=== PATIENT | female | born 1990 | race Caucasian/White ===

== ENCOUNTER 2020-08-24 05:30 | Inpatient (IN) | payer OTHER ==
[~2020-08-24] VITALS: Ht 157.5 cm; Wt 72.6 kg
== END 2020-08-26 11:41 | disposition home or self-care (01) | DRG 807 ==
LOC: OB/GYN 05:30 → LDR 05:30 → OB/GYN 18:40
PROVIDERS: ADMIT Obstetrics & Gynecology; ATTEND Obstetrics & Gynecology
PROC: 10E0XZZ Delivery of Products of Conception, External Approach (ICD-10-PCS; principal; 2020-08-24)
PROC: 4A1HXFZ Monitoring of Products of Conception, Cardiac Rhythm, External Approach (ICD-10-PCS; 2020-08-24)
DX: O80 Encounter for full-term uncomplicated delivery (principal); Z37.0 Single live birth; Z3A.39 39 weeks gestation of pregnancy; Z20.822 Contact with and (suspected) exposure to COVID-19

== ENCOUNTER 2023-09-04 08:17 | Inpatient (IN) | payer OTHER ==
[~2023-09-04] VITALS: Ht 162.6 cm; Wt 87.1 kg
[2023-09-04 09:53] LABS: URINE APPEARANCE Clear; URINE BILIRRUBIN Negative (NEGATIVE); URINE BLOOD Negative; URINE COLOR Dark Yellow; URINE GLUCOSE Negative (NEGATIVE); URINE LEUKOCYTE Negative; URINE NITRATE Negative; URINE PROTEIN Negative (NEGATIVE); URINE UROBILINOGEN 0.2 E.U./dl
[2023-09-04 09:54] LABS: HEMOGLOBIN 12.9 g/dL (12.0-15.00); MEAN CELL VOLUME 84.6 fL (80.00-100.00); MEAN CORPUSCULAR HEMOGLOBIN 28.6 pg (27.00-32.0); MEAN CORPUSCULAR HGB CONC 33.8 g/dl (32.0-36.0); PLATELET COUNT 250 K/uL (150-450); RED CELL DISTRIBUTION WIDTH 14.9 % (11.5-14.5); URINE BACTERIA 823.9 uL (0.0-1933); URINE RBC 3.8 uL (0.0-20.8); URINE WBC 8.7 uL (0.0-23.2)
[2023-09-04] MEDS ORDERED: PRENATABS RX T1 EACH PO (10:06)
[2023-09-04] MEDS ORDERED: RINGERS SOLUTION,LACTATED 1,000 ML IV SCH (10:30)
[2023-09-04] MEDS ORDERED: OXYTOCIN 20 UNITS/500ML RL PIGGYBAG IV SCH (12:30)
[2023-09-04] MEDS ORDERED: ERYTHROMYCIN BASE 1 GM TUBE OP ONE (15:18)
[2023-09-04] MEDS ORDERED: CHLORHEXIDINE GLUCONATE 120 ML BOTTLE TOP ONE (15:18)
[2023-09-04] MEDS ORDERED: LIDOCAINE HCL 1% 200MG/20ML VIAL IJ ONE (15:18)
[2023-09-04] MEDS ORDERED: CHLORHEXIDINE GLUCONATE 120 ML BOTTLE TOP SCH (15:45)
[2023-09-04] MEDS ORDERED: ERYTHROMYCIN BASE 1 GM TUBE OP SCH (15:45)
[2023-09-04] MEDS ORDERED: OXYTOCIN 1,000 ML IV SCH (15:45)
[2023-09-04] MEDS ORDERED: ACETAMINOPHEN 500 MG GEL..CAP PO PRN (15:45)
[2023-09-04] MEDS ORDERED: LIDOCAINE HCL 1% 200MG/20ML VIAL IJ SCH (15:45)
[2023-09-04 19:44] LABS: HEMOGLOBIN 13.8 g/dL (12.0-15.00); MEAN CORPUSCULAR HEMOGLOBIN 28.6 pg (27.00-32.0); MEAN CORPUSCULAR HGB CONC 33.6 g/dl (32.0-36.0); PLATELET COUNT 242 K/uL (150-450); RED BLOOD COUNT 4.82 M/uL (4.00-6.00); RED CELL DISTRIBUTION WIDTH 14.7 % (11.5-14.5)
[2023-09-05] MEDS ORDERED: PNV,CALCIUM 72/IRON/FOLIC ACID 1 TAB TABLET PO SCH (09:00)
== END 2023-09-06 16:28 | disposition home or self-care (01) | DRG 807 ==
LOC: LDR 08:17 → OB/GYN 16:17
PROVIDERS: ADMIT Obstetrics & Gynecology; ATTEND Obstetrics & Gynecology
PROC: 10E0XZZ Delivery of Products of Conception, External Approach (ICD-10-PCS; principal; 2023-09-04)
PROC: 4A1HXCZ Monitoring of Products of Conception, Cardiac Rate, External Approach (ICD-10-PCS; 2023-09-04)
DX: O80 Encounter for full-term uncomplicated delivery (principal); Z37.0 Single live birth; Z3A.39 39 weeks gestation of pregnancy; Z20.822 Contact with and (suspected) exposure to COVID-19